=== PATIENT | female | born 1980 | race Caucasian/White ===

== ENCOUNTER → 2017-12-19 19:27 | Outpatient (CLI) | payer MEDICAID ==
[2009-12-19 03:44] VITALS: BMI 31.5
== END | disposition home or self-care (01) ==
LOC: D.MAMMO 10:30
DX: N63.13 Unspecified lump in the right breast, lower outer quadrant (principal)

== ENCOUNTER → 2019-01-23 10:30 | Outpatient (CLI) | payer MEDICAID ==
[2009-12-19 03:44] VITALS: BMI 31.5
== END | disposition home or self-care (01) ==
LOC: D.MAMMO 10:30
PROVIDERS: ATTEND Obstetrics & Gynecology Obstetrics
DX: Z12.31 Encounter for screening mammogram for malignant neoplasm of breast (principal)